=== PATIENT | female | born 1985 | race Caucasian/White ===

== ENCOUNTER 2017-07-29 09:41 | Emergency (ER) | payer OTHER ==
[~2017-07-29] VITALS: Ht 154.9 cm; Wt 66.8 kg
[~2017-07-29 09:41] MED LIST: ACETAMINOPHEN-1 EAC1 PO; AMBIEN10 MG PO; AMBIEN5 MG PO; AMITRIPTYLINE H25 MG PO; AMITRIPTYLINE H50 MG PO; ASPIRIN325 MG PO; ATARAX,VISTARIL25 MG PO; ATIVAN PO; BENADRYL25 MG PO; BUSPAR10 MG PO; BUSPAR15 MG PO; CEFTIN500 MG PO; CELEXA40 MG PO; CYMBALTA30 MG PO; DICLOFENAC SODI75 MG PO; DULCOLAX5 MG PO; ELAVIL50 MG PO; ELAVIL75 MG PO; ENDOCET 5-3251 EACH PO; EPIPEN ADU0.3 MG/0.3 IM; FENTANYL1 EAC4 TD; FOLIC ACID20 MG PO; IBUPROFEN800 MG PO; KEPPRA500 MG PO; KLONOPIN0.5 M1 PO; LYRICA100 MG PO; LYRICA75 MG PO; MEDROL DOSEPAK4 MG PO; METHOCARBAMOL500 MG PO; MORPHINE SULFAT15 M1 PO; OXYCODONE HCL10 MG PO; OXYCODONE-APAP1 EAC6 PO; OXYCODONE-APAP1 EACH PO; OXYCONTIN10 MG PO; OXYCONTIN20 MG PO; PAIN RELIEVER325 MG PO; PAROXETINE HCL20 MG PO; PAXIL20 MG PO; PAXIL40 MG PO; PERCOCET 5/31 TABLET PO; PRENATAL TABLE1 EAC3 PO; PROTONIX40 MG PO; TOPAMAX25 MG PO; Trileptal PO; ULTRA-LIGHT RO1 EACH MC; VICODIN ES 7.51 EAC1 PO; ZANTAC150 MG PO; ZITHROMAX TRI-500 MG PO; ZOFRAN4 MG PO; buspar
[2017-07-29] MEDS ORDERED: AUGMENTIN875 MG PO (12:57)
[2017-07-29 13:06] VITALS: BP 113/83
== END 2017-07-29 13:07 | disposition home or self-care (01) ==
LOC: EME 09:41
PROC: 3E0234Z Introduction of Serum, Toxoid and Vaccine into Muscle, Percutaneous Approach (ICD-10-PCS; principal; 2017-07-29)
DX: S51.852A Open bite of left forearm, initial encounter (principal); S61.552A Open bite of left wrist, initial encounter; S61.250A Open bite of right index finger without damage to nail, initial encounter; W54.0XXA Bitten by dog, initial encounter; Z23 Encounter for immunization; F17.200 Nicotine dependence, unspecified, uncomplicated
CPT/HCPCS: 73090; 73140; 99281; 99283

== ENCOUNTER 2017-10-31 15:44 | Emergency (ER) | payer OTHER ==
[~2017-10-31] VITALS: Ht 154.9 cm; Wt 65.9 kg
[~2017-10-31 15:44] MED LIST changes: +AUGMENTIN875 MG PO
[2017-10-31 16:47] LABS: HEMATOCRIT 37.2 % (36.0-46.0); HEMOGLOBIN 12.5 G/DL (11.9-15.5); MCH 27.7 PG (29.0-34.0); MCHC 33.6 G/DL (30.0-36.0); MCV 82.3 FL (83-99); PLATELET COUNT 365 K/uL (156-360); RBC DIS.WIDTH-CV 15.6 % (11.8-14.6); RBC DIS.WIDTH-SD 47.3 % (39-53); RED BLOOD COUNT 4.52 M/uL (3.80-5.20)
[2017-10-31 17:02] LABS: CHLORIDE 105 mEq/L (99-109); POTASSIUM 4.2 mEq/L (3.7-5.4); SODIUM 141 mEq/L (136-147)
[2017-10-31 17:04] LABS: GLUCOSE 111 mg/dL (70-99)
[2017-10-31 17:08] LABS: CREATININE 0.8 mg/dL (0.6-1.3); GFR ESTIMATE (CALCULATED) > 59 mL/min/; UREA NITROGEN (BUN) 8 mg/dL (9-23)
[2017-10-31 17:17] LABS: QUANTITATIVE HCG < 4.0 MIU/ML
[2017-10-31] MEDS ORDERED: KLONOPIN0.5 M1 PO (17:48)
[2017-10-31 17:54] VITALS: BP 115/101
== END 2017-10-31 17:55 | disposition home or self-care (01) ==
LOC: EME 15:44 → RME 15:44
PROVIDERS: Nurse Practitioner Family
DX: G40.909 Epilepsy, unspecified, not intractable, without status epilepticus (principal); S01.03XA Puncture wound without foreign body of scalp, initial encounter; R51 Headache; W22.09XA Striking against other stationary object, initial encounter; Y93.11 Activity, swimming; Y92.34 Swimming pool (public) as the place of occurrence of the external cause; F17.200 Nicotine dependence, unspecified, uncomplicated
CPT/HCPCS: 70450; 80048; 84702; 85027; 99281; 99284